=== PATIENT | male | born 1960 | race Caucasian/White ===

== ENCOUNTER 2023-07-23 13:17 | Emergency (ER) | payer OTHER, SELFPAY ==
[2023-07-23 13:40] VITALS: BP 169/96; PULSE 72; RESP 14; TEMP 36.3; O2SAT 96; BMI 28.1
--- NOTE | 2023-07-23 13:43 | DI.RAD.S_ITS ---
PROCEDURE: XR CHEST 1V INDICATIONS: chest pain TECHNIQUE: One view of the chest was acquired. COMPARISON: None. FINDINGS: Surgical changes and devices: None. Lungs and pleura: Mild appearance of increased vascularity. No effusions or consolidations. Mediastinum: Mediastinal contours appear normal. Heart size is normal. Bones and chest wall: No suspicious bony lesions. Overlying soft tissues appear unremarkable. IMPRESSION: Mild increased vascularity suggestive of edema. Dictated by: Nery Chopra M.D. on 07/23/2023 at 14:10 Approved by: Nery Chopra M.D. on 07/23/2023 at 14:11
--- NOTE | 2023-07-23 13:46 | DI.CT.S_ITS ---
PROCEDURE: CT HEAD/BRAIN WO CON INDICATIONS: dizzy,blurred vision TECHNIQUE: Noncontrast 4.5 mm thick angled axial sections acquired from the foramen magnum to the vertex, with coronal and sagittal reformats. For radiation dose reduction, the following was used: automated exposure control, adjustment of mA and/or kV according to patient size. COMPARISON: None. FINDINGS: Image quality: Excellent. CSF spaces: Basal cisterns are patent. No extra-axial fluid collections. Ventricles are normal in size and shape. Brain: No midline shift. No intracranial masses or hemorrhage. Miranda-white matter interface is normal. Skull and face: Calvarium and visualized facial bones are intact, without suspicious lesions. Sinuses: Visualized sinuses and mastoids are clear. IMPRESSION: 1. No acute intracranial abnormalities. Dictated by: Mario Sanchez M.D. on 07/23/2023 at 14:03 Approved by: Mario Sanchez M.D. on 07/23/2023 at 14:03
[2023-07-23 14:23] LABS: Add Manual Diff / Slide Review NO; Basophils Absolute Auto 100 /uL (0-100); Basophils Percent Auto 0.9 % (0-2); Eosinophils Absolute Auto 200 /uL (0-450); Eosinophils Percent Auto 2.4 % (2-4); Hematocrit 42.2 % (41-53); Lymphocytes Absolute Auto 1900 /uL (1100-4500); Lymphocytes Percent Auto 21.3 % (25-40); Mean Corpuscular HGB Conc 35.4 % (30-36); Mean Corpuscular Hemoglobin 28.7 PG (26-34); Mean Corpuscular Volume 80.9 fL (80-100); Monocytes Absolute Auto 700 /uL (0-900); Monocytes Percent Auto 8.3 % (3-14); Neutrophils Absolute Auto 6000 /uL (1500-7000); Neutrophils Percent Auto 67.1 % (50-75); Platelet Count 252 X10^3/uL (150-400); Red Blood Cell Count 5.22 X10^6/uL (4.5-5.9); Red Cell Distribution Width 14.2 % (11.6-14.8); White Blood Cell Count 8.9 X10^3/uL (4.5-11.0)
[2023-07-23 14:24] LABS: Prothrombin Time 11.3 SECONDS (10.1-12.7)
[2023-07-23 14:27] LABS: PTT Partial Thromboplastin Tim 33 SECONDS (26-36)
[2023-07-23 14:30] LABS: Alanine Aminotransferase 27 IU/L (<50); Albumin 4.4 g/dL (3.5-5.0); Albumin Globulin Ratio 1.5 (1.0-2.8); Alkaline Phosphatase 54 U/L (38-126); Aspartate Aminotransferase 25 IU/L (17-59); BUN Creatinine Ratio 17.4 (6-22); Bilirubin Total 0.6 mg/dL (0.2-1.3); Blood Urea Nitrogen 15 mg/dL (9-20); Carbon Dioxide 24 mmol/L (22-32); Chloride 105 mmol/L (98-107); Creatine Kinase 147 U/L (55-170); Estimated Glomerular Filt Rate > 60 mL/min (>60); Globulin 2.9 g/dL (1.7-4.1); Glucose 97 mg/dL (80-110); HEMOLYSIS < 15 (0-50); Lipase 67 U/L (23-300); Magnesium 1.9 mg/dL (1.6-2.3); Potassium 3.4 mmol/L (3.4-5.1); Sodium 138 mmol/L (137-145); Total Protein 7.3 g/dL (6.3-8.2)
[2023-07-23 14:41] LABS: Troponin I < 0.012 ng/mL (0.01-0.034)
[2023-07-23 15:03] VITALS: BP 155/88; PULSE 79; O2SAT 95
[2023-07-23 17:58] LABS: Troponin I < 0.012 ng/mL (0.01-0.034)
--- NOTE | 2023-07-24 12:15 | CM.SWNOTE ---
ED EBD SPECIAL EDUCATION TEACHER Note EBD SPECIAL EDUCATION TEACHER receives consult from RN as patient leaves before being seen and has concerns for his symptoms, patient does not have current PCP. EBD SPECIAL EDUCATION TEACHER calls PCP office and schedules ED f/u for patient for Thursday08/03/23 at 9:45 AM check in [address] Dr[address] Falcon. EBD SPECIAL EDUCATION TEACHER calls patient and leaves VM with the above information. Katrin Munguia, DRY WALL APPLICATOR
== END 2023-07-23 18:58 | disposition left against medical advice (07) ==
PROVIDERS: Emergency Provider Emergency Medicine
DX: R42 Dizziness and giddiness (principal); H53.8 Other visual disturbances; R07.9 Chest pain, unspecified
CPT/HCPCS: 36415; 70450; 71045; 80053; 82550; 83690; 83735; 84484; 85025; 85610; 85730; 93005; 99283

== ENCOUNTER → 2023-08-03 11:13 | Outpatient (CLI) | payer OTHER, SELFPAY ==
[2023-08-03 12:13] LABS: Erythrocyte Sedimentation Rate 3 MM/HR (0-15)
[2023-08-03 12:19] LABS: C-Reactive Protein Quant 0.6 mg/dL (<1.0)
[2023-08-03 12:45] LABS: TSH w/ Reflex to FT4 1.46 uIU/mL (0.47-4.68)
[2023-08-05 06:00] LABS: Angiotensin Converting Enzyme 20 U/L (14-82)
== END ==
PROVIDERS: PCP Pediatrics; Referring Provider Pediatrics; Visit Provider Pediatrics
DX: H40.9 Unspecified glaucoma (principal); I10 Essential (primary) hypertension; M54.32 Sciatica, left side; M54.50 Low back pain, unspecified; R42 Dizziness and giddiness; R51.9 Headache, unspecified; R93.89 Abnormal findings on diagnostic imaging of other specified body structures
CPT/HCPCS: 36415; 82164; 84443; 85651; 86140

== ENCOUNTER → 2023-08-04 16:10 | Outpatient (CLI) | payer OTHER, SELFPAY ==
--- NOTE | 2023-08-04 16:11 | DI.MRI.S_ITS ---
PROCEDURE: MR ORBITS FACE NECK WO/W CON INDICATIONS: headaches, vision change, dizziness, new onset glaucoma TECHNIQUE: Noncontrast sagittal T1 spin echo, axial FLAIR, axial gradient echo, axial diffusion and ADC acquired through the brain. Coronal STIR, thin-slice axial T1 spin echo through the orbits. After the administration of contrast, thin-slice axial and coronal T1 spin echo with fat saturation through the orbits, axial and coronal and sagittal T1 spin echo with fat saturation through the brain. COMPARISON: [facility], CT, CT HEAD/BRAIN WO CON, 07/23/2023, 13:57. FINDINGS: Image quality: Excellent. Orbits: Globes are symmetrical. The optic nerves are normal in size, without abnormal signal or enhancement. No retrobulbar masses or fat abnormalities. The extra-ocular muscles are normal and symmetric in appearance. Lacrimal glands are normal. Optic chiasm is normal. Periorbital soft tissues appear normal. CSF spaces: Ventricles are normal in size and shape. Basal cisterns are patent. No extra-axial fluid collections. Brain: No intracranial bleeds or mass effects. No abnormal intracranial enhancement. Miranda-white matter interface is intact. Diffusion weighted images demonstrate no acute ischemic insults. Pituitary gland appears normal, without sellar or suprasellar masses. Brainstem appears normal. Normal intravascular flow voids are present. Skull and face: Calvarial marrow is normal in signal. Sinuses: Sinuses and mastoids are clear. IMPRESSION: No significant abnormality of the orbits can be seen. No imaging explanation is found for this patient's presenting symptoms. No masses or abnormal enhancement can be seen. Dictated by: Isael Kimball M.D. on 08/04/2023 at 16:23 Approved by: Isael Kimball M.D. on 08/04/2023 at 16:24
== END ==
PROVIDERS: PCP Pediatrics; Referring Provider Pediatrics; Visit Provider Pediatrics
DX: R93.89 Abnormal findings on diagnostic imaging of other specified body structures (principal); M54.32 Sciatica, left side; M54.50 Low back pain, unspecified; H40.9 Unspecified glaucoma; R42 Dizziness and giddiness; I10 Essential (primary) hypertension
CPT/HCPCS: 70543; A9579

== ENCOUNTER → 2023-08-06 12:26 | Outpatient (CLI) | payer OTHER, SELFPAY ==
--- NOTE | 2023-08-06 12:26 | DI.ECHO.S_ITS ---
[facility] +---------+ : : [address] : : : : [id number] : : : : Phone: [phone]---------+ Echocardiogram Report + + :Name: BROOKLYN HYDE Study Date: 08/06/2023 Height: 67 in : :[facility] ReadingLocation: Weight: 189 lb : : Gender: Male BSA: 2.0 m2 : :: 1960 Age: 62 yrs BP: 167/105 mmHg: :Reason For Study: DIZZINESS : :Ordering Physician: HEATHER, : :MARA Reynolds Performed By: Marguerite Pan : :Referring: MARA MENENDEZ : + + Interpretation Summary The left ventricle is normal in size. Left ventricular systolic function appears normal without focal wall motion abnormalities. The ejection fraction is estimated to be 60-65%. Diastolic parameters suggest a relaxation abnormality of the left ventricle, consistent with probable normal filling pressures. The right ventricle is normal in size and function. The left atrial size is normal. There is mild aortic regurgitation. The aortic arch is mildly enlarged. Procedure: A two-dimensional transthoracic echocardiogram with color flow and Doppler was performed. The study quality was technically adequate. There is no prior echocardiogram noted for this patient. The patient was in sinus rhythm with heart rates between 62-75 bpm during the exam. Left Ventricle: The left ventricle is normal in size. There is mild concentric left ventricular hypertrophy. Left ventricular systolic function appears normal without focal wall motion abnormalities. The ejection fraction is estimated to be 60-65%. Diastolic parameters suggest a relaxation abnormality of the left ventricle, consistent with probable normal filling pressures. Right Ventricle: The right ventricle is normal in size and function. Atria: The left atrial size is normal. Right atrial size is normal. There is no Doppler evidence for an interatrial shunt. Mitral Valve: The mitral valve is normal in structure and function. There is no mitral regurgitation noted. Aortic Valve: The aortic valve is trileaflet. The aortic valve opens well. There is no aortic valve stenosis. There is mild aortic regurgitation. Tricuspid Valve: The tricuspid valve is normal in structure and function. There is trace tricuspid regurgitation. Pulmonic Valve: The pulmonic valve leaflets are thin and pliable; valve motion is normal. There is no pulmonic valvular regurgitation. Great Vessels: The aortic root is normal size. The dimensions of the ascending aorta are normal. The aortic arch is mildly enlarged. The IVC is of normal diameter and collapses greater than 50% with a sniff. This suggests a low right atrial pressure of 3 mm Hg. Pericardium/ Pleura There is no pericardial effusion. There is no pleural effusion. MMode/2D Measurements & Calculations LVIDd: 3.7 cm LVOT diam: 2.0 cm LVIDs: 2.4 cm Ao root diam: 3.4 cm FS: 34.8 % asc Aorta Diam: 3.3 cm EPSS: 1.0 cm Ao Arch Diam (Prox Trans): 3.4 cm IVSd: 1.1 cm LVPWd: 1.2 cm LV gupta. diameter/BSA (cm/m^2): 1.9 LV sys. diameter/BSA (cm/m^2): 1.2 LA A2 area: 14.4 cm2 RA long axis: 4.2 cm LA A4 area: 11.3 cm2 RA area: 9.7 cm2 LA length (vol): 4.2 cm RA vol: 19.0 ml LA vol: 33.2 ml RA : 9.6 ml/m2 LA vol index: 16.8 ml/m2 IVC diam: 1.6 cm RVD1 (basal): 2.8 cm RVD2 (mid): 2.5 cm TAPSE: 1.7 cm Doppler Measurements & Calculations Ao V2 max: 160.3 cm/sec LVOT Max Kenton: 105.4 cm/sec Ao V2 mean: 119.5 cm/sec LV V1 max P.4 mmHg Ao max P.3 mmHg LV V1 VTI: 21.9 cm Ao mean P.3 mmHg DARLENE(I,D): 2.4 cm2 Ao V2 VTI: 30.0 cm DARLENE(V,D): 2.1 cm2 sev ratio: 0.73 DARLENE indexed to BSA (cm^2/m^2): 1.2 MV E max kenton: 63.2 cm/sec PA V2 max: 102.7 cm/sec MV A max kenton: 86.3 cm/sec PA V2 mean: 73.4 cm/sec MV E/A: 0.73 PA mean P.4 mmHg Med Peak E' Kenton: 4.3 cm/sec PA pr(Accel): 31.0 mmHg E/E' med: 14.7 Lat Peak E' Kenton: 4.4 cm/sec E/E' lat: 14.2 E/e' average: 14.5 MV dec time: 0.34 sec SV(LVOT): 71.5 ml Reading Physician:04:53 PM
== END ==
PROVIDERS: PCP Pediatrics; Referring Provider Pediatrics; Visit Provider Pediatrics
DX: R93.89 Abnormal findings on diagnostic imaging of other specified body structures (principal); I35.1 Nonrheumatic aortic (valve) insufficiency; I77.89 Other specified disorders of arteries and arterioles
CPT/HCPCS: 93306

== ENCOUNTER → 2023-08-22 11:38 | Outpatient (CLI) | payer OTHER, SELFPAY ==
[2023-08-22 13:02] LABS: Add Manual Diff / Slide Review NO; Basophils Absolute Auto 100 /uL (0-100); Basophils Percent Auto 0.6 % (0-2); Eosinophils Absolute Auto 200 /uL (0-450); Eosinophils Percent Auto 2.4 % (2-4); Hematocrit 44.4 % (41-53); Hemoglobin 15.4 g/dL (13.5-17.5); Lymphocytes Absolute Auto 1900 /uL (1100-4500); Lymphocytes Percent Auto 18.4 % (25-40); Mean Corpuscular HGB Conc 34.7 % (30-36); Mean Corpuscular Hemoglobin 28.4 PG (26-34); Mean Corpuscular Volume 81.7 fL (80-100); Monocytes Absolute Auto 900 /uL (0-900); Monocytes Percent Auto 8.6 % (3-14); Neutrophils Absolute Auto 7200 /uL (1500-7000); Platelet Count 294 X10^3/uL (150-400); Red Blood Cell Count 5.43 X10^6/uL (4.5-5.9); Red Cell Distribution Width 13.8 % (11.6-14.8); White Blood Cell Count 10.3 X10^3/uL (4.5-11.0)
[2023-08-22 13:08] LABS: Hemoglobin A1C% w Est Avg Glu 5.2 % (4.0-6.0)
[2023-08-22 13:18] LABS: Alanine Aminotransferase 40 IU/L (<50); Albumin 4.5 g/dL (3.5-5.0); Albumin Globulin Ratio 1.6 (1.0-2.8); Alkaline Phosphatase 57 U/L (38-126); Aspartate Aminotransferase 27 IU/L (17-59); BUN Creatinine Ratio 13.1 (6-22); Bilirubin Total 0.9 mg/dL (0.2-1.3); Blood Urea Nitrogen 13 mg/dL (9-20); Calcium 9.4 mg/dL (8.4-10.2); Carbon Dioxide 25 mmol/L (22-32); Chloride 105 mmol/L (98-107); Cholesterol 313 mg/dL (140-199); Estimated Glomerular Filt Rate > 60 mL/min (>60); Globulin 2.9 g/dL (1.7-4.1); Glucose 98 mg/dL (80-110); HDL Cholesterol 44 mg/dL (40-60); HEMOLYSIS < 15 (0-50); LDL Cholesterol Calculated 212 mg/dL (<100); Potassium 4.1 mmol/L (3.4-5.1); Sodium 138 mmol/L (137-145); Total Protein 7.4 g/dL (6.3-8.2); Triglycerides 285 mg/dL (35-150)
[2023-08-24 20:29] LABS: Fecal Immunochemical Test Negative (Negative)
== END ==
PROVIDERS: PCP Family Medicine; Referring Provider Family Medicine; Visit Provider Family Medicine
DX: Z00.00 Encounter for general adult medical examination without abnormal findings (principal); I10 Essential (primary) hypertension; M54.32 Sciatica, left side; Z12.11 Encounter for screening for malignant neoplasm of colon
CPT/HCPCS: 36415; 80053; 80061; 82274; 83036; 85025

== ENCOUNTER → 2023-09-07 15:53 | Outpatient (CLI) | payer OTHER, SELFPAY ==
[2023-09-07 18:12] LABS: Hepatitis B Surface Antigen NEGATIVE s/c (NEGATIVE)
[2023-09-08 08:26] LABS: Rubeola Measles IgG 90.8 AU/mL (Immune >16.4); Varicella IgG Antibody 3273 index (Immune >165)
[2023-09-09 14:43] LABS: QuantiFERON Mitogen Value >10.00 IU/mL (.); QuantiFERON TB Gold Plus Negative (Negative); QuantiFERON TB1 Ag Value 0.03 IU/mL (.)
== END ==
PROVIDERS: PCP Family Medicine; Referring Provider Family Medicine; Visit Provider Family Medicine
DX: Z01.84 Encounter for antibody response examination (principal); Z11.1 Encounter for screening for respiratory tuberculosis
CPT/HCPCS: 36415; 86480; 86735; 86762; 86765; 86787; 87340

== ENCOUNTER → 2023-09-10 11:48 | Outpatient (CLI) | payer OTHER, SELFPAY ==
--- NOTE | 2023-09-10 11:50 | DI.RAD.S_ITS ---
PROCEDURE: XR LUMBAR SPINE MIN 4V INDICATIONS: low back pain TECHNIQUE: 5 views of the lumbar spine were acquired, including bilateral oblique views. COMPARISON: None. FINDINGS: Bones: 5 nonrib-bearing vertebrae are present. There is normal bony alignment. No vertebral body compression fractures. No suspicious bony lesions. Mild degenerative disc changes throughout the lumbar spine. Mild L2-L3, L3-L4, L4-L5 and L5-S1 facet arthropathy. Soft tissues: Overlying bowel gas pattern is normal. No suspicious soft tissue calcifications. Oblique images: No pars defects. IMPRESSION: 1. Multilevel degenerative disc disease. 2. Multilevel facet arthropathy. 3. No fracture. No acute osseous lesion. If symptoms and/or clinical suspicion for pathology persists, evaluation with MRI should be considered for further assessment. Dictated by: Rhonda Mcfarland MD, PhD on 09/10/2023 at 13:29 Approved by: Rhonda Mcfarland MD, PhD on 09/10/2023 at 13:29
== END ==
PROVIDERS: PCP Family Medicine; Referring Provider Family Medicine; Visit Provider Family Medicine
DX: M54.50 Low back pain, unspecified (principal); M51.36 Other intervertebral disc degeneration, lumbar region; M47.816 Spondylosis without myelopathy or radiculopathy, lumbar region
CPT/HCPCS: 72110

== ENCOUNTER → 2023-10-14 16:42 | Outpatient (CLI) | payer OTHER, SELFPAY ==
--- NOTE | 2023-10-14 16:43 | DI.MRI.S_ITS ---
PROCEDURE: MR LUMBAR SPINE WO CON INDICATIONS: LUMBAR RADICULOPATHY TECHNIQUE: Noncontrast sagittal T1 spin echo and T2 fast echo, sagittal STIR, axial T1 and T2 fast spin echo through the lumbar spine. Axial and oblique coronal T1 spin echo and STIR through the sacrum. In cases with scoliosis, additional coronal T2 fast spin echo may be performed. COMPARISON: None. FINDINGS: Image quality: Excellent. Alignment and Curvature: There is normal bony alignment. Bone Marrow: Marrow is of normal overall signal. No acute vertebral body compression fractures. No sacral fractures. Spinal Cord: Conus medullaris terminates at the L1 level. Visualized cord demonstrates normal signal and size. Paraspinous Soft Tissues: No paravertebral masses. T12-L1: Normal appearance. L1-L2: Normal appearance. L2-L3: Normal appearance. L3-L4: Disc height is maintained. Asymmetric left disc bulge. Mild central stenosis and effacement of the left lateral recess. Moderate left and no right foraminal stenosis. L4-L5: Disc space narrowing and circumferential disc bulge with hypertrophic facet joints. Mild central stenosis. There is effacement of both lateral recesses. Mild bilateral foraminal stenosis L5-S1: Disc height is preserved. Posterior disc bulge present. Hypertrophic facet joints. No central stenosis. Moderate left and no right foraminal stenosis. IMPRESSION: Multilevel degenerative disc disease and arthropathy in the lower cervical lumbar spine associated with predominantly foraminal stenosis including moderate left foraminal stenosis L5-S1 in effacement of the lateral recesses at L4-5. Approved by: Brown Qiu M.D. on 10/14/2023 at 16:39
== END ==
PROVIDERS: PCP Family Medicine; Referring Provider Anesthesiology; Visit Provider Anesthesiology
DX: M51.16 Intervertebral disc disorders with radiculopathy, lumbar region (principal); M51.17 Intervertebral disc disorders with radiculopathy, lumbosacral region; M47.26 Other spondylosis with radiculopathy, lumbar region; M47.27 Other spondylosis with radiculopathy, lumbosacral region; M48.061 Spinal stenosis, lumbar region without neurogenic claudication; M48.07 Spinal stenosis, lumbosacral region
CPT/HCPCS: 72148

== ENCOUNTER → 2023-10-22 15:59 | Outpatient (CLI) | payer OTHER, SELFPAY ==
--- NOTE | 2023-10-22 16:00 | DI.RAD.S_ITS ---
PROCEDURE: XR HAND RT MIN 3V INDICATIONS: 5th finger DIP joint injury TECHNIQUE: 3 views of the hand(s) acquired. COMPARISON: None. FINDINGS: Bones: No fractures or dislocations. Carpal bones are normally aligned. No suspicious bony lesions. Soft tissues: No suspicious soft tissue calcifications. IMPRESSION: No acute bony abnormality. Dictated by: Jannie Becerra M.D. on 10/22/2023 at 18:36 Approved by: Jannie Becerra M.D. on 10/22/2023 at 18:38
== END ==
PROVIDERS: PCP Family Medicine; Referring Provider Anesthesiology; Visit Provider Anesthesiology
DX: M79.641 Pain in right hand (principal)
CPT/HCPCS: 73130

== ENCOUNTER 2023-10-28 09:36 | Outpatient (CLI) | payer OTHER, SELFPAY ==
[2023-10-28 10:25] VITALS: BP 177/102; PULSE 78; RESP 16; TEMP 36.6; O2SAT 91
--- NOTE | 2023-10-28 10:30 | DI.RAD.S_ITS ---
PROCEDURE: PAIN L INTERLAMINAR/CAUDAL INJ INDICATIONS: RADICULOPATHY COMPARISON: None. FINDINGS: Fluoroscopic spot filming was performed to verify placement of spinal needles at the L5-S1 level(s), as labeled on the films. Appropriate location(s) of the needle tip(s) was confirmed by injection of iodinated contrast. IMPRESSION: Spinal needle at the L5-S1 level. Please see procedure report for details. Dictated by: Sean Bartholomew M.D. on 10/28/2023 at 13:52 Approved by: Sean Bartholomew M.D. on 10/28/2023 at 13:54
[2023-10-28 10:40] VITALS: BP 185/97; PULSE 77; RESP 18; O2SAT 95
[2023-10-28 10:45] VITALS: BP 168/92; PULSE 74; RESP 15; O2SAT 93
[2023-10-28] MEDS: DEXAMETHASONE 10 MG/ML VIAL INJ (10:46)
[2023-10-28] MEDS: iopamidoL 15 ML VIAL 3 ML INJ (10:46)
[2023-10-28 10:50] VITALS: BP 174/99; PULSE 73; RESP 14; O2SAT 94
[2023-10-28 10:57] VITALS: BP 186/97; PULSE 76; RESP 16; O2SAT 97
--- NOTE | 2023-10-28 12:05 | P.PCN_ITS ---
Date/Time/Diagnoses Date of procedure: 10/28/23 Time of procedure: 10:30 Procedure Notes Physician: Papo Jim Total Fluoroscopy time (seconds): 17 Total sedation minutes: 0 Procedure in detail & Post-procedure care: L5-S1 Interlaminar Epidural Steroid Injection Indications: Ric is presenting for treatment of lumbar radiculopathy with low back and leg pain. Preoperative diagnosis: Lumbar radiculopathy Postoperative diagnosis: Same Focused Examination: Ax3 Mood and affect are normal Vital Signs: VSS Consent: Following review of allergies and potential side effects/complications, including, but not necessarily limited to, infection, allergic reaction, local tissue breakdown, stroke, temporary or permanent nerve injury, paralysis, and possible , the patient indicated that they understood and agreed to proceed.? An informed consent document was signed by the patient, witnessed by a nurse and placed in the patient's chart.? Additionally, other treatment options including medications and physical therapy were reviewed with the patient. All questions were answered. Site was then marked. Anesthesia: Local Position: Prone Monitoring: NIBP, Pulse oximetry, 3 lead EKG Needle used: 18 G 3.5? Tuohy Contrast: Isovue 300M Injectate: Dexamethasone 10 mg with 1% lidocaine 2 mL Technique: The skin was prepped with chloraprep and then draped in a sterile fashion. Time out was performed as per protocol. Oxygen applied via NC. Skin and subcutaneous structures of the needle entry site was then infiltrated with 3 mL of lidocaine 1%. Under AP, lateral and contralateral oblique fluoroscopic control, the Tuohy needle was guided into the L5-S1 epidural space. The space was accessed with loss of resistance technique. Isovue 300M was then injected and the spread was consistent with the epidural space. There was no evidence for intravascular or intrathecal uptake. After negative aspiration, the above- mentioned injectate was then slowly administered and the needle withdrawn. The patient expressed no unusual discomfort or paresthesias during the injection. Band-Aids applied to injection sites. EBL: less than 1 ml Complications: None Post Procedure: Patient was taken to the recovery and monitored. The patient was provided a Pain Log to continue to record the patient's response to the target- specific procedure prior to the patient's follow-up visit with the referring physician. Patient was stable upon discharge. Detailed post procedure instructions were provided. Patient was asked to call in the event of worsening pain, fever, weakness, numbness or bladder or bowel incontinence.
== END 2023-10-28 11:06 | disposition home or self-care (01) ==
PROVIDERS: PCP Family Medicine; Referring Provider Anesthesiology; Visit Provider Anesthesiology
DX: M54.16 Radiculopathy, lumbar region (principal)
CPT/HCPCS: 62323; 99152; J1100